=== PATIENT | female | born 1990 | race Caucasian/White ===

== ENCOUNTER 2023-11-11 20:24 | Emergency (ER) | payer SELFPAY ==
[~2023-11-11] VITALS: Ht 149.9 cm; Wt 90.9 kg
[2023-11-11 20:43] VITALS: TEMP 98.1
[2023-11-11] MEDS ORDERED: Albuterol 0.083% Neb Soln 2.5 MG/3 ML UD IH ONE (21:45)
[2023-11-11] MEDS ORDERED: NS 500 ML IV ONE (21:45)
[2023-11-11] MEDS ORDERED: diphenhydrAMINE 50 MG/ML 1 ML VIAL IV ONE (21:45)
[2023-11-11] MEDS ORDERED: Magnesium Sulfate 4% 50 ML IV ONE (21:45)
[2023-11-11] MEDS ORDERED: Ketorolac 15 MG/ML VIAL IV ONE (21:45)
[2023-11-11] MEDS ORDERED: PAXLOVID CO-PA1 EACH PO (23:39)
[2023-11-12 00:22] VITALS: BP 124/79; PULSE 86
== END 2023-11-12 00:22 | disposition home or self-care (01) ==
LOC: COL.ER 20:24
DX: O98.511 Other viral diseases complicating pregnancy, first trimester (principal); U07.1 COVID-19; O99.511 Diseases of the respiratory system complicating pregnancy, first trimester; J40 Bronchitis, not specified as acute or chronic; O99.351 Diseases of the nervous system complicating pregnancy, first trimester; G43.009 Migraine without aura, not intractable, without status migrainosus; Z3A.11 11 weeks gestation of pregnancy; Z28.310 Unvaccinated for COVID-19

== ENCOUNTER 2024-04-27 15:21 | Emergency (ER) | payer MEDICAID ==
[~2024-04-27] VITALS: Ht 180.3 cm; Wt 95.5 kg
[~2024-04-27 15:21] MED LIST: PAXLOVID CO-PA1 EACH PO
[2024-04-27 15:29] VITALS: TEMP 98.3
[2024-04-27 16:14] LABS: BASO # 0.1 K/mm3 (0.0-0.2); BASO % 0.5 % (0.0-2.0); EOS # 0.3 K/mm3 (0.0-0.7); EOS % 2.2 % (0.0-4.0); GRAN # 9.3 K/mm3 (1.4-6.5); GRAN % 71.2 % (42.2-75.2); HEMATOCRIT 42.6 % (37.0-47.0); HEMOGLOBIN 14.4 g/dl (12.5-16.0); LYMPH # 2.5 K/mm3 (1.2-3.4); LYMPH % 18.8 % (20.0-51.0); MEAN CELL VOLUME 90 fl (80.0-100.0); MEAN CORPUSCULAR HEMOGLOBIN 31 pg (27-31); MEAN CORPUSCULAR HGB CONC 34 g/dl (33.0-37.0); MEAN PLATELET VOLUME 9.6 fl (7.4-10.4); MONO # 0.9 K/mm3 (0.1-0.6); MONO % 7.1 % (1.7-9.3); PLATELET COUNT 363 K/mm3 (130-400); RED BLOOD COUNT 4.72 M/mm3 (4.10-5.30); REDCELL DISTRIBUTION WIDTH-CV 11.9 % (11.5-14.5)
[2024-04-27] MEDS ORDERED: NS 1,000 ML IV ONE (16:15)
[2024-04-27 16:31] LABS: ALANINE AMINOTRANSFERASE 17 U/L (0-55); ALBUMIN 4.1 g/dL (3.5-5.0); ALKALINE PHOSPHATASE 76 U/L (40-150); ANION GAP 12 mmol/L (7-16); AST,SGOT 15 U/L (5-34); BILIRUBIN,TOTAL 0.5 mg/dL (0.2-1.2); BLOOD UREA NITROGEN 12 mg/dL (7-19); CALCIUM 9.8 mg/dL (8.4-10.2); CHLORIDE 104 mEq/L (98-107); CREATININE, serum 0.76 mg/dL (0.57-1.11); GLUCOSE 93 mg/dL (70-99); POTASSIUM 3.6 mEq/L (3.5-4.5); SODIUM 141 mEq/L (136-145); TOTAL PROTEIN 8.4 g/dl (6.2-8.1)
[2024-04-27 16:40] LABS: HCG,QUANTITATIVE < 1 mIU/mL
[2024-04-27 16:52] LABS: COLLECTION METHOD CLEAN CATCH
[2024-04-27 17:06] LABS: URINE APPEARANCE CLEAR (CLEAR/HAZY); URINE BLOOD 3+ (NEGATIVE); URINE COLOR YELLOW (YELLOW); URINE GLUCOSE NEGATIVE (NEGATIVE); URINE KETONE TRACE (NEGATIVE); URINE NITRATE NEGATIVE (NEGATIVE); URINE PROTEIN(semi-quant) NEGATIVE (NEGATIVE)
[2024-04-27] MEDS ORDERED: Ondansetron 4 MG/2 ML VIAL IV ONE (17:15)
[2024-04-27] MEDS ORDERED: Ketorolac 15 MG/ML VIAL IV ONE (17:15)
[2024-04-27] MEDS ORDERED: Iohexol 300 - 100 ML VIAL IV ONE (17:53)
[2024-04-27] MEDS ORDERED: NS 100 ML IV ONE (17:54)
[2024-04-27] MEDS ORDERED: ZOFRAN 4MG T4 MG/TAB PO (18:39)
[2024-04-27 18:49] VITALS: BP 113/71; PULSE 72
== END 2024-04-27 18:55 | disposition home or self-care (01) ==
LOC: COL.ER 15:21
PROVIDERS: Physician Assistant
DX: O20.9 Hemorrhage in early pregnancy, unspecified (principal); O21.9 Vomiting of pregnancy, unspecified; Z3A.01 Less than 8 weeks gestation of pregnancy
CPT/HCPCS: J1885; J2405; J7030; Q9967